=== PATIENT | male | born 1970 | race Two or more races ===

== ENCOUNTER 2022-07-09 12:29 | Emergency (ER) | payer OTHER ==
[~2022-07-09] VITALS: Ht 175.3 cm; Wt 72.6 kg
--- NOTE | 2022-07-09 12:44 | NUR ---
RECEIVED PT 52 YRS MALE ESCORTED BY DEPUTY S/P FELL SITING ON FLOOR NO PAIN NO diformity
--- NOTE | 2022-07-09 14:15 | NUR ---
X RAY DONE AT BED SIDE
[2022-07-09 14:55] VITALS: BP 104/66
[2022-07-09] MEDS ORDERED: ACETAMINOPHEN 325 MG TABLET ONE (14:57)
[2022-07-09] MEDS ORDERED: ASPIRIN 81 MG TAB.CHEW ONE (14:58)
[2022-07-09] MEDS ORDERED: ACETAMINOPHEN 325 MG TABLET PO ONE (15:00)
[2022-07-09] MEDS ORDERED: ASPIRIN 81 MG TAB.CHEW PO ONE (15:00)
--- NOTE | 2022-07-09 15:00 | NUR ---
Patient discharged to [facility] to [place] in stable condition. Written and verbal after care instructions given. lapd verbalizes understanding of instruction.
== END 2022-07-09 15:14 ==
LOC: ER 12:40
DX: S09.90XA Unspecified injury of head, initial encounter (principal); S30.0XXA Contusion of lower back and pelvis, initial encounter; I10 Essential (primary) hypertension; Z86.73 Personal history of transient ischemic attack (TIA), and cerebral infarction without residual deficits; W07.XXXA Fall from chair, initial encounter; Y93.89 Activity, other specified; Y92.89 Other specified places as the place of occurrence of the external cause; Y99.8 Other external cause status
CPT/HCPCS: 70450-TC; 72125-TC; 72220-TC